=== PATIENT | male | born 1995 | race African-American/Black ===

== ENCOUNTER 2017-10-18 09:38 | Emergency (ER) | payer SELFPAY ==
[~2017-10-18] VITALS: Ht 188 cm; Wt 75.0 kg
[2017-10-18 09:55] VITALS: BP 116/55
[2017-10-18] MEDS ORDERED: DIPHENHYDRAMINE 25MG CAPSULE PO ONE (11:00)
[2017-10-18] MEDS ORDERED: DEXAMETHASONE 10 MG/ML VIAL IM ONE (11:00)
[2017-10-18] MEDS ORDERED: FAMOTIDINE 20MG TABLET PO ONE (11:00)
== END 2017-10-18 12:05 | disposition home or self-care (01) ==
LOC: ER 09:38
DX: L50.0 Allergic urticaria (principal); R03.0 Elevated blood-pressure reading, without diagnosis of hypertension
CPT/HCPCS: 96372; 99283; J1100; Q0163